=== PATIENT | male | born 1970 | race American Indian/Alaskan Native ===

== ENCOUNTER 2021-10-23 11:02 | Inpatient (IN) | payer SELFPAY ==
--- NOTE | 2021-10-23 14:52 | Event Note ---
ED Screening Note ED Screening Note: Patient reports dizziness, dark rectal blood, and abdominal pain. Heart rate 117 in triage. Labs ordered This initial assessment/diagnostic orders/clinical plan/treatment(s) is/are subject to change based on patients health status, clinical progression and re- assessment by fellow clinical providers in the ED. Further treatment and workup at subsequent clinical providers discretion. Patient/guardian urged not to elope from the ED as their condition may be serious if not clinically assessed and managed. Initial orders include: Sitting and reassessment to, pending a main ER bed for his abdominal work-up
[2021-10-23 16:57] LABS: Basophils % (Auto) 0.6 % (0.0-1.8); Eosinophils % (Auto) 0.3 % (0.0-4.3); INR 0.99 (0.87-1.13); Lymphocytes # (Auto) 3.1 K/mm3 (1.2-5.4); Lymphocytes % (Auto) 44.3 % (13.4-35.0); Mean Corpuscular HGB Conc 33 % (32-34); Mean Corpuscular Volume 80 fl (84-94); Monocytes % (Auto) 14.1 % (0.0-7.3); Red Blood Count 1.96 M/mm3 (3.65-5.03); Red Cell Distribution Width 14.1 % (13.2-15.2)
[2021-10-23 17:00] LABS: Hemoglobin 5.2 gm/dl (11.8-15.2)
[2021-10-23 17:01] LABS: Hematocrit 15.8 % (35.5-45.6); Platelet Count 232 K/mm3 (140-440)
[2021-10-23 17:04] LABS: Alanine Aminotransferase 6 units/L (7-56); Albumin 3.6 g/dL (3.9-5); Blood Urea Nitrogen 17 mg/dL (9-20); Calcium 8.6 mg/dL (8.4-10.2); Hemolysis Index 0
[2021-10-23 17:07] LABS: BUN/Creatinine Ratio 28
[2021-10-23 17:17] LABS: Partial Thromboplastin Time < 20.0 Sec. (24.2-36.6)
[2021-10-23] MEDS ORDERED: SODIUM CHLORIDE 0.9% 500 ML 500 ML IV ONE (17:25)
[2021-10-23] MEDS ORDERED: SODIUM CHLORIDE 0.9% 1000 ML 2,000 ML IV ONE (17:26)
--- NOTE | 2021-10-23 17:29 | Emergency Department Report ---
ED GI Bleed HPI - General Chief complaint: GI Bleed Stated complaint: gi bleed Time Seen by Provider: 10/23/21 17:14 Source: patient, RN notes reviewed Mode of arrival: Ambulatory Limitations: No Limitations - History of Present Illness Initial comments: The patient was evaluated in the emergency department for symptoms described in the history of present illness. He/she was evaluated in the context of the global COVID-19 pandemic, which necessitated consideration that the patient might be at risk for infection with the virus that causes COVID-19. Institutional protocols and algorithms that pertain to the evaluation of patients at risk for COVID-19 are in a state of rapid change based on information released by regulatory bodies including the CDC and federal and state organizations. These policies and algorithms were followed during the pat ient's care in the emergency department. Please note that these policies, procedures and recommendations changed on a rapid basis. This patient is a pleasant and cooperative 51-year-old gentleman, presenting to the ER today with a complaint of painless dark red blood per rectum with bowel movements, for 5 days. The patient denies the use of systemic anticoagulation. The patient has never had endoscopic evaluation previously. Patient reports that he does not identify as a Adventist, and reports no quaker objections to receiving a packed red blood transfusion. -: days(s) Radiation: none Quality: painless Consistency: intermittent Improves with: none Worsens with: other (Defecation) - Related Data Allergies Allergy/AdvReac Type Severity Reaction Status Date / Time No Known Allergies Allergy Verified 10/23/21 12:20 ED Review of Systems ROS: Stated complaint: BLOOD IN URINE Other details as noted in HPI Constitutional: denies: fever, malaise Eyes: denies: eye discharge ENT: denies: congestion Respiratory: denies: cough Cardiovascular: other (Lightheadedness) Gastrointestinal: hematochezia. denies: abdominal pain, hematemesis, melena Musculoskeletal: denies: back pain Neurological: denies: weakness Hematological/Lymphatic: denies: easy bleeding ED Past Medical Hx - Past Medical History Previous Medical History?: No - Surgical History Past Surgical History?: No ED Physical Exam - General Limitations: No Limitations General appearance: alert, in no apparent distress - Head Head exam: Present: atraumatic, normocephalic - Eye Eye exam: Present: normal appearance, EOMI, other (Pale conjunctiva are noted). Absent: nystagmus - ENT ENT exam: Present: normal orophraynx, mucous membranes dry, normal external ear exam, other (Poor dentition) - Neck Neck exam: Present: normal inspection, full ROM. Absent: tenderness, meningismus - Respiratory Respiratory exam: Present: normal lung sounds bilaterally. Absent: respiratory distress, wheezes, rales, rhonchi, stridor, decreased breath sounds - Cardiovascular Cardiovascular Exam: Present: normal rhythm, tachycardia. Absent: bradycardia, irregular rhythm, systolic murmur, diastolic murmur, rubs, gallop - GI/Abdominal GI/Abdominal exam: Present: soft. Absent: distended, tenderness, guarding, rebound, rigid, pulsatile mass - Rectal Rectal exam: Present: normal inspection, normal rectal tone, bloody stool, other (Patient provides consent for digital rectal examination) - Extremities Exam Extremities exam: Present: normal inspection, full ROM, other (2+ pulses noted in the bilateral upper and lower extremities. There is no palpable cord. negative Homans sign. Muscular compartments are soft. The pelvis is stable.). Absent: pedal edema, calf tenderness - Back Exam Back exam: Present: normal inspection. Absent: tenderness, CVA tenderness (R), CVA tenderness (L), paraspinal tenderness, vertebral tenderness - Neurological Exam Neurological exam: Present: alert, oriented X3, normal gait, other (No facial droop. Tongue midline. Extraocular movements intact bilaterally. Facial sensation intact to light touch in V1, V2, V3 distribution bilaterally. 5 and a 5 strength in 4 extremities. Sensation intact to light touch in 4 extremities.). Absent: motor sensory deficit - Psychiatric Psychiatric exam: Present: flat affect - Skin Skin exam: Present: warm, dry, intact, normal color. Absent: rash ED Course Vital Signs 10/23/21 10/23/21 12:20 17:53 Temperature 97.8 F Pulse Rate 117 H Respiratory 16 Rate Blood Pressure 121/68 [Left] O2 Sat by Pulse 100 Oximetry O2 Sat by Pulse 99 Oximetry [ Digit-Finger] - Reevaluation(s) Reevaluation #1: 10/23/21 17:52 Discussed the patient's history, physical, laboratory studies and clinical impression with GI on-call, Dr. Radha Espana He advises that the GI group will follow in consultation, advises that clear liquid diet is acceptable, he is also in agreement with packed red blood cell transfusion, iron studies, and indicates that PPI once or twice daily would be reasonable. The GI group will follow in consultation and see the patient in the morning. Hospital physician, Dr. Feng, to admit patient to the medical service. Hospital physician, Dr. Feng, to admit patient to the medical service Reevaluation #2: 10/23/21 17:53 I will defer to the inpatient team to follow-up on iron studies. Reevaluation #3: 10/23/21 18:21 Tachycardia resolved. Heart rate 90 bpm. - Pulse Oximetry Interpretation Digit-Finger Initial Pulse Oximetry Readin O2 Sat by Pulse Oximetry: 99 Actions Taken: none ED Medical Decision Making - Lab Data Result diagrams: 10/23/21 16:07 10/23/21 16:07 Vital Signs 10/23/21 12:20 Temperature 97.8 F Pulse Rate 117 H Respiratory 16 Rate Blood Pressure 121/68 [Left] O2 Sat by Pulse 100 Oximetry Lab Results 10/23/21 10/23/21 10/23/21 Range/Units 16:07 16:07 16:07 WBC 7.0 (4.5-11.0) K/mm3 RBC 1.96 L (3.65-5.03) M/mm3 Hgb 5.2 L* (11.8-15.2) gm/dl Hct 15.8 L* (35.5-45.6) % MCV 80 L (84-94) fl MCH 26 L (28-32) pg MCHC 33 (32-34) % RDW 14.1 (13.2-15.2) % Plt Count 232 (140-440) K/mm3 Lymph % (Auto) 44.3 H (13.4-35.0) % [place] % (Auto) 14.1 H (0.0-7.3) % Eos % (Auto) 0.3 (0.0-4.3) % Baso % (Auto) 0.6 (0.0-1.8) % Lymph # (Auto) 3.1 (1.2-5.4) K/mm3 [place] # (Auto) 1.0 H (0.0-0.8) K/mm3 Eos # (Auto) 0.0 (0.0-0.4) K/mm3 Baso # (Auto) 0.0 (0.0-0.1) K/mm3 Seg Neutrophils % 40.7 (40.0-70.0) % Seg Neutrophils # 2.8 (1.8-7.7) K/mm3 PT 14.2 (12.2-14.9) Sec. INR 0.99 (0.87-1.13) APTT < 20.0 L (24.2-36.6) Sec. Sodium 142 (137-145) mmol/L Potassium 4.2 (3.6-5.0) mmol/L Chloride 108.5 H (98-107) mmol/L Carbon Dioxide 24 (22-30) mmol/L Anion Gap 14 mmol/L BUN 17 (9-20) mg/dL Creatinine 0.6 L (0.8-1.3) mg/dL Estimated GFR > 60 ml/min BUN/Creatinine Ratio 28 % Glucose 99 (75-100) mg/dL Calcium 8.6 (8.4-10.2) mg/dL Magnesium 2.10 (1.7-2.3) mg/dL Total Bilirubin 0.20 (0.1-1.2) mg/dL AST 16 (5-40) units/L ALT 6 L (7-56) units/L Alkaline Phosphatase 43 (35-129) units/L Total Protein 7.5 (6.3-8.2) g/dL Albumin 3.6 L (3.9-5) g/dL Albumin/Globulin Ratio 0.9 % Lipase 12 L (13-60) units/L - EKG Data -: EKG Interpreted by Fl EKG shows normal: sinus rhythm Rate: normal - EKG Data When compared to previous EKG there are: previous EKG unavailable 10/23/21 18:21 The EKG is interpreted at 18: 2 0 Sinus rhythm, rate 90 bpm. Normal axis, normal P wave axis, left ventricular hypertrophy, QTC 4 4 8 ms, OH interval 1 7 8 ms. This is an abnormal EKG. This is not a STEMI. Low voltage noted in lead I. - Medical Decision Making Differential diagnosis, including but not limited to: Diverticulosis, angiodysplasia, malignancy Assessment and plan: 51-year-old gentleman presenting with painless dark red blood per rectum associated with defecation. Does not take any anticoagulants, and reports no endoscopic evaluation or colonoscopy that he is aware of. He is tachycardic, but not encephalopathic, with a soft benign abdomen, and is found to have dark red blood on rectal examination. He is obviously guaiac positive. He is also found to have a microcytic anemia. He is agreeable to packed red blood cell transfusion, and reports no quaker objections to packed red blood cell transfusion. Have recommended admission to the medical service for supportive care, blood transfusion, urgent GI consultation. I discussed this plan of care with the patient. He is agreeable to the plan of care. Currently awaiting callback from GI. Critical Care Time: Yes Critical care time in (mins) excluding proc time.: 35 Critical care attestation.: If time is entered above; I have spent that time in minutes in the direct care of this critically ill patient, excluding procedure time. ED Disposition Clinical Impression: GI bleed, Microcytic anemia Disposition: ADMITTED INPATIENT Is pt being admited?: Yes Does the pt Need Aspirin: No Condition: Good Forms: Accompanied Note
[2021-10-23] MEDS ORDERED: PANTOPRAZOLE 40 MG INJ IV ONE (17:50)
[2021-10-23] MEDS ORDERED: oxyCODONE /ACETAMINOPHEN 5-325MG TAB PO PRN (17:53)
[2021-10-23] MEDS ORDERED: ALBUTEROL 2.5 MG/3 ML NEBU IH PRN (17:53)
[2021-10-23] MEDS ORDERED: HYDROmorphone 0.5 MG/0.5 ML INJ IV PRN (17:53)
[2021-10-23] MEDS ORDERED: ONDANSETRON 4 MG/2 ML INJ IV PRN (17:53)
--- NOTE | 2021-10-23 17:53 | History and Physical Report ---
History of Present Illness Chief complaint: I see blood when I go to the toilet History of present illness: 51 YO Male with no PMH presents to ED for evaluation. Patient reports "I see blood when I go to the bathroom". Patient states that he has experienced dark red blood per rectum when having bowel movements. Patient states that he has experienced multiple episodes of dark stools over the past 5 days. Patient transported to [facility] via private vehicle for further care and evaluation of the aforementioned symptoms. The patient was seen and evaluated in the emergency department. All lab and imaging studies reviewed. Patient found to be Hemoccult positive with clinical symptoms consistent with GI bleed complicated by blood loss anemia. Patient admitted to medical floor due to increased risk of worsening symptoms. Patient treated with packed red blood cell transfusion, as well as PPI therapy, GI team consulted in ED. Patient pending endoscopic evaluation. Patient denies fever, chills, chest pain, palpitation, productive cough, skin rash, recent contact, or known exposure to COVID-19. No prior adm ission for review. No medication listed at time of admission for reconciliation. Past History Past Medical History: No medical history, other (Reviewed) Past Surgical History: No surgical history, Other (Reviewed) Social history: single. denies: smoking, alcohol abuse, prescription drug abuse Family history: hypertension Medications and Allergies Allergies Allergy/AdvReac Type Severity Reaction Status Date / Time No Known Allergies Allergy Verified 10/23/21 12:20 Review of Systems Constitutional: weakness, no weight gain, no fever, no chills Ears, nose, mouth and throat: no ear pain, no ear discharge, no nose pain, no nasal congestion Respiratory: no cough, no excessive sputum, no hemoptysis Gastrointestinal: BRBPR, no abdominal pain, no diarrhea, no constipation, no hematemesis, no coffee ground emesis Genitourinary Male: no hematuria, no flank pain, no discharge, no urinary nerissa quency, no urinary hesitancy Rectal: no pain Musculoskeletal: no neck stiffness, no neck pain, no shooting arm pain Integumentary: no rash, no pruritis, no redness, no jaundice, no boils Neurological: no transient paralysis, no numbness, no tingling, no seizures, no syncope Psychiatric: no anxiety, no change in sleep habits, no insomnia, no change in appetite, no change in libido, no disorientation Endocrine: no cold intolerance, no polyphagia, no polyuria, no nocturia, no flushing Hematologic/Lymphatic: no easy bruising, no lymphadenopathy Allergic/Immunologic: no allergic rhinitis, no anaphylaxis, no angioedema Exam - Constitutional Vitals: Temp Pulse Resp BP Pulse Ox 97.8 F 117 H 16 121/68 99 10/23/21 12:20 10/23/21 12:20 10/23/21 12:20 10/23/21 12:20 10/23/21 17:42 General appearance: Present: mild distress, cachectic - EENT Eyes: Present: PERRL ENT: hearing intact, clear oral mucosa - Neck Neck: Present: supple, normal ROM - Respiratory Respiratory effort: normal Respiratory: bilateral: CTA - Cardiovascular Heart Sounds: Present: S1 & S2. Absent: rub, click - Extremities Extremities: pulses symmetrical, No edema Peripheral Pulses: within normal limits - Abdominal General gastrointestinal: Present: soft, non-tender, non-distended, normal bowel sounds Male genitourinary: Present: normal - Integumentary Integumentary: Present: clear, warm, dry - Musculoskeletal Musculoskeletal: gait normal, strength equal bilaterally - Psychiatric Psychiatric: appropriate mood/affect, intact judgment & insight - Neurologic Neurologic: CNII-XII intact, moves all extremities Results - Labs CBC & Chem 7: 10/23/21 16:07 10/23/21 16:07 Labs: Abnormal lab results 10/23/21 10/23/21 10/23/21 Range/Units 16:07 16:07 16:07 RBC 1.96 L (3.65-5.03) M/mm3 Hgb 5.2 L* (11.8-15.2) gm/dl Hct 15.8 L* (35.5-45.6) % MCV 80 L (84-94) fl MCH 26 L (28-32) pg Lymph % (Auto) 44.3 H (13.4-35.0) % [place] % (Auto) 14.1 H (0.0-7.3) % [place] # (Auto) 1.0 H (0.0-0.8) K/mm3 APTT < 20.0 L (24.2-36.6) Sec. Chloride 108.5 H (98-107) mmol/L Creatinine 0.6 L (0.8-1.3) mg/dL ALT 6 L (7-56) units/L Albumin 3.6 L (3.9-5) g/dL Lipase 12 L (13-60) units/L Assessment and Plan - Patient Problems (1) GI bleed Current Visit: No Status: Acute Plan to address problem: GI bleed protocol: Hemoccult in ED, Blood cell transfusion, PPI therapy, supportive care, bowel rest, GI team consulted. Patient pending further care and evaluation as per GI team. (2) Anemia Current Visit: Yes Status: Acute Plan to address problem: Blood cell transfusion, supportive care, iron supplementation. (3) Malnutrition Current Visit: Yes Status: Acute Qualifiers: Protein-calorie malnutrition severity: mild Plan to address problem: Increase protein intake, dietary supplementation. (4) DVT prophylaxis Current Visit: Yes Status: Acute Plan to address problem: SCD to bilateral lower extremities while in bed (5) Advance care planning Current Visit: Yes Status: Acute Plan to address problem: Disease education data, care plan discussed, diagnoses discussed, prognosis discussed, patient is full code. Patient acknowledges understanding and agreement with care plan, +30 minutes. (6) Preventative health care Current Visit: Yes Status: Acute Plan to address problem: Patient counseled regarding balanced diet, increase protein intake, outpatient follow-up with primary care physician for all age and risk factor appropriate screening tests. +30 minutes.
[2021-10-23 18:52] LABS: Iron 17 ug/dL (49-181); Total Iron Binding Capacity 283 mcg/dL (250-450)
[2021-10-23] MEDS: PANTOPRAZOLE 40 MG INJ IV SCH (22:10)
[2021-10-24 05:45] LABS: Basophils % (Auto) 0.3 % (0.0-1.8); Eosinophils % (Auto) 0.7 % (0.0-4.3); Hemoglobin 7.2 gm/dl (11.8-15.2); Mean Corpuscular HGB Conc 35 % (32-34); Mean Corpuscular Volume 79 fl (84-94); Monocytes # (Auto) 0.7 K/mm3 (0.0-0.8); Monocytes % (Auto) 11.9 % (0.0-7.3); Platelet Count 211 K/mm3 (140-440); Red Blood Count 2.65 M/mm3 (3.65-5.03); Red Cell Distribution Width 14.3 % (13.2-15.2)
[2021-10-24] MEDS: SODIUM CHLORIDE 0.9% 1000 ML 1,000 ML IV SCH ×2 (08:00→20:43)
--- NOTE | 2021-10-24 09:37 | Progress Note ---
Assessment and Plan Assessment and plan: 51 YO Male with no PMH presents to ED for evaluation of hematochezia. Patient stated that he has experienced dark red blood per rectum when having bowel movements. Patient stated that he has experienced multiple episodes of dark stools over the past 5 days. Patient transported to [facility] via private vehicle for further care and evaluation of the aforementioned symptoms. The patient was seen and evaluated in the emergency department. All lab and imaging studies reviewed. Patient found to be Hemoccult positive with clinical symptoms consistent with GI bleed complicated by blood loss anemia. Patient admitted to medical floor due to increased risk of worsening symptoms. GI bleed Acute blood loss anemia Moderate protein calorie malnutrition 10/24/2021. Patient has received 1 unit of PRBCs. We will continue with PRBCs until hemoglobin has stabilized. Follow-up serial H&H. Patient has had no further bleeding since admission. Await GI consultation. Continue IV Protonix History Interval history: No new issues overnight Hospitalist Physical - Constitutional Vitals: Temp Pulse Resp BP Pulse Ox 97.7 F 89 18 93/59 100 10/23/21 20:38 10/24/21 06:34 10/24/21 06:34 10/24/21 06:31 10/24/21 09:12 General appearance: Present: no acute distress, cachectic - EENT Eyes: Present: PERRL, EOM intact ENT: hearing intact, clear oral mucosa, dentition normal - Neck Neck: Present: supple, normal ROM - Respiratory Respiratory effort: normal Respiratory: bilateral: CTA - Cardiovascular Rhythm: regular Heart Sounds: Present: S1 & S2. Absent: gallop, rub - Extremities Extremities: no ischemia, No edema, Full ROM - Abdominal General gastrointestinal: soft, non-tender, non-distended, normal bowel sounds - Integumentary Integumentary: Present: clear, warm, dry - Neurologic Neurologic: CNII-XII intact, moves all extremities Results - Labs CBC & Chem 7: 10/24/21 04:46 10/23/21 16:07 Labs: Laboratory Last Values WBC 5.9 K/mm3 (4.5-11.0) 10/24/21 04:46 RBC 2.65 M/mm3 (3.65-5.03) L 10/24/21 04:46 Hgb 7.2 gm/dl (11.8-15.2) L 10/24/21 04:46 Hct 21.0 % (35.5-45.6) L 10/24/21 04:46 MCV 79 fl (84-94) L 10/24/21 04:46 MCH 27 pg (28-32) L 10/24/21 04:46 MCHC 35 % (32-34) H 10/24/21 04:46 RDW 14.3 % (13.2-15.2) 10/24/21 04:46 Plt Count 211 K/mm3 (140-440) 10/24/21 04:46 Lymph % (Auto) 33.0 % (13.4-35.0) 10/24/21 04:46 [place] % (Auto) 11.9 % (0.0-7.3) H 10/24/21 04:46 Eos % (Auto) 0.7 % (0.0-4.3) 10/24/21 04:46 Baso % (Auto) 0.3 % (0.0-1.8) 10/24/21 04:46 Lymph # (Auto) 2.0 K/mm3 (1.2-5.4) 10/24/21 04:46 [place] # (Auto) 0.7 K/mm3 (0.0-0.8) 10/24/21 04:46 Eos # (Auto) 0.0 K/mm3 (0.0-0.4) 10/24/21 04:46 Baso # (Auto) 0.0 K/mm3 (0.0-0.1) 10/24/21 04:46 Seg Neutrophils % 54.1 % (40.0-70.0) 10/24/21 04:46 Seg Neutrophils # 3.2 K/mm3 (1.8-7.7) 10/24/21 04:46 PT 14.2 Sec. (12.2-14.9) 10/23/21 16:07 INR 0.99 (0.87-1.13) 10/23/21 16:07 APTT < 20.0 Sec. (24.2-36.6) L 10/23/21 16:07 Sodium 142 mmol/L (137-145) 10/23/21 16:07 Potassium 4.2 mmol/L (3.6-5.0) 10/23/21 16:07 Chloride 108.5 mmol/L (98-107) H 10/23/21 16:07 Carbon Dioxide 24 mmol/L (22-30) 10/23/21 16:07 Anion Gap 14 mmol/L 10/23/21 16:07 BUN 17 mg/dL (9-20) 10/23/21 16:07 Creatinine 0.6 mg/dL (0.8-1.3) L 10/23/21 16:07 Estimated GFR > 60 ml/min 10/23/21 16:07 BUN/Creatinine Ratio 28 % 10/23/21 16:07 Glucose 99 mg/dL (75-100) 10/23/21 16:07 Calcium 8.6 mg/dL (8.4-10.2) 10/23/21 16:07 Magnesium 2.10 mg/dL (1.7-2.3) 10/23/21 16:07 Iron 17 ug/dL (49-181) L 10/23/21 17:55 TIBC 283 mcg/dL (250-450) 10/23/21 17:55 Ferritin 25.0 ng/mL (30.0-300.0) L 10/23/21 17:55 Total Bilirubin 0.20 mg/dL (0.1-1.2) 10/23/21 16:07 AST 16 units/L (5-40) 10/23/21 16:07 ALT 6 units/L (7-56) L 10/23/21 16:07 Alkaline Phosphatase 43 units/L (35-129) 10/23/21 16:07 Total Protein 7.5 g/dL (6.3-8.2) 10/23/21 16:07 Albumin 3.6 g/dL (3.9-5) L 10/23/21 16:07 Albumin/Globulin Ratio 0.9 % 10/23/21 16:07 Lipase 12 units/L (13-60) L 10/23/21 16:07 Blood Type AB POSITIVE 10/23/21 Unknown Antibody Screen Negative 10/23/21 Unknown Crossmatch See Detail 10/23/21 Unknown Microbiology: Microbiology 10/23/21 Unknown Stool - Stool Aspirate Stool Occult Blood (MARY ALICE) - Final Daily/IV: Voiding Method Toilet Active Medications - Current Medications Current Medications: Generic Name Dose Route Start Last Admin Trade Name Freq PRN Reason Stop Dose Admin Acetaminophen 650 mg 10/23/21 17:53 Acetaminophen 325 Mg Tab PO Q4H PRN Pain MILD(1-3)/Fever >100.5/POLLACK Albuterol 2.5 mg 10/23/21 17:53 Albuterol 2.5 Mg/3 Ml Nebu IH Q4HRT PRN Shortness Of Breath Hydromorphone HCl 0.5 mg 10/23/21 17:53 Hydromorphone 0.5 Mg/0.5 Ml Inj IV Q23H PRN Pain , Severe (7-10) Sodium Chloride 1,000 mls @ 75 mls/hr 10/24/21 08:00 10/24/21 08:00 Nacl 0.9% 1000 Ml IV 75 mls/hr DIRECT JENN Administration Ondansetron HCl 4 mg 10/23/21 17:53 Ondansetron 4 Mg/2 Ml Inj IV Q8H PRN Nausea And Vomiting Oxycodone/Acetaminophen 1 tab 10/23/21 17:53 Oxycodone /Acetaminophen 5-325mg Tab PO Q16H PRN Pain, Moderate (4-6) Pantoprazole Sodium 40 mg 10/23/21 22:00 10/23/21 22:10 Pantoprazole 40 Mg Inj IV 40 mg BID JENN Administration Sodium Chloride 10 ml 10/23/21 22:00 10/23/21 22:11 Sodium Chloride 0.9% 10 Ml Flush Syringe IV 10 ml BID JENN Administration Sodium Chloride 10 ml 10/23/21 17:53 Sodium Chloride 0.9% 10 Ml Flush Syringe IV PRN PRN LINE FLUSH
--- NOTE | 2021-10-24 10:13 | Gastroenterology Consultation ---
History of Present Illness - Reason for Consult Consult date: 10/24/21 GI Bleed - History of Present Illness Mr. Dominguez is a 51 y/o M who presented to the ED last p.m. c/o blood in his stool. Pt states that he began noticing bloody stool Thursday afternoon and has persisted since w/ alternating episodes of melena and hematochezia. Pt states that after he has a BM he feels dizzy. Pt states that this has never happened before and he had "normal BMs w/ occasional constipation" up until Thursday. Endorses x1 episode of nonbloody vomit "a few days ago." Denies abdominal pain, previous colon/EGD, or FMHx of CRC/polyps. No know sick contacts or recent travel. In the ED pt H/H was 5.2, 15.8. After transfusion H/H 7.2, 21.0. Pt states that he is feeling well and has not have any episodes of bloody stool since being in the hospital. Past History Past Medical History: No medical history, other (Reviewed) Past Surgical History: No surgical history, Other (Reviewed) Social history: single. denies: smoking, alcohol abuse, prescription drug abuse Family history: hypertension Medications and Allergies Allergies Allergy/AdvReac Type Severity Reaction Status Date / Time No Known Allergies Allergy Verified 10/23/21 12:20 Active Meds: Active Medications Acetaminophen (Acetaminophen 325 Mg Tab) 650 mg PO Q4H PRN PRN Reason: Pain MILD(1-3)/Fever >100.5/POLLACK Albuterol (Albuterol 2.5 Mg/3 Ml Nebu) 2.5 mg IH Q4HRT PRN PRN Reason: Shortness Of Breath Hydromorphone HCl (Hydromorphone 0.5 Mg/0.5 Ml Inj) 0.5 mg IV Q23H PRN PRN Reason: Pain , Severe (7-10) Sodium Chloride (Nacl 0.9% 1000 Ml) 1,000 mls @ 75 mls/hr IV DIRECT JENN Last Admin: 10/24/21 08:00 Dose: 75 mls/hr Ondansetron HCl (Ondansetron 4 Mg/2 Ml Inj) 4 mg IV Q8H PRN PRN Reason: Nausea And Vomiting Oxycodone/Acetaminophen (Oxycodone /Acetaminophen 5-325mg Tab) 1 tab PO Q16H PRN PRN Reason: Pain, Moderate (4-6) Pantoprazole Sodium (Pantoprazole 40 Mg Inj) 40 mg IV BID [facility] Last Admin: 10/23/21 22:10 Dose: 40 mg Sodium Chloride (Sodium Chloride 0.9% 10 Ml Flush Syringe) 10 ml IV BID [facility] Last Admin: 10/23/21 22:11 Dose: 10 ml Sodium Chloride (Sodium Chloride 0.9% 10 Ml Flush Syringe) 10 ml IV PRN PRN PRN Reason: LINE FLUSH Review of Systems - Review of Systems Gastrointestinal: change in bowel habits, melena, hematochezia Exam - Constitutional Vital Signs: Temp Pulse Resp BP Pulse Ox 97.7 F 89 18 93/59 100 10/23/21 20:38 10/24/21 06:34 10/24/21 06:34 10/24/21 06:31 10/24/21 09:12 General appearance: no acute distress - EENT ENT: hearing intact - Neck Neck: supple, normal ROM - Respiratory Respiratory effort: normal - Gastrointestinal General gastrointestinal: Present: soft, non-tender, non-distended - Integumentary Integumentary: Present: clear, warm, dry - Neurologic Neurological: alert and oriented x3 - Labs CBC & Chem 7: 10/24/21 04:46 10/23/21 16:07 Lab Results: Laboratory Results - last 24 hr 10/23/21 10/23/21 10/23/21 16:07 16:07 16:07 WBC 7.0 RBC 1.96 L Hgb 5.2 L* Hct 15.8 L* MCV 80 L MCH 26 L MCHC 33 RDW 14.1 Plt Count 232 Lymph % (Auto) 44.3 H [place] % (Auto) 14.1 H Eos % (Auto) 0.3 Baso % (Auto) 0.6 Lymph # (Auto) 3.1 [place] # (Auto) 1.0 H Eos # (Auto) 0.0 Baso # (Auto) 0.0 Seg Neutrophils % 40.7 Seg Neutrophils # 2.8 PT 14.2 INR 0.99 APTT < 20.0 L Sodium 142 Potassium 4.2 Chloride 108.5 H Carbon Dioxide 24 Anion Gap 14 BUN 17 Creatinine 0.6 L Estimated GFR > 60 BUN/Creatinine Ratio 28 Glucose 99 Calcium 8.6 Magnesium 2.10 Iron TIBC Ferritin Total Bilirubin 0.20 AST 16 ALT 6 L Alkaline Phosphatase 43 Total Protein 7.5 Albumin 3.6 L Albumin/Globulin Ratio 0.9 Lipase 12 L Blood Type Antibody Screen Crossmatch 10/23/21 10/23/21 10/23/21 17:55 17:55 Unknown WBC RBC Hgb Hct MCV MCH MCHC RDW Plt Count Lymph % (Auto) [place] % (Auto) Eos % (Auto) Baso % (Auto) Lymph # (Auto) [place] # (Auto) Eos # (Auto) Baso # (Auto) Seg Neutrophils % Seg Neutrophils # PT INR APTT Sodium Potassium Chloride Carbon Dioxide Anion Gap BUN Creatinine Estimated GFR BUN/Creatinine Ratio Glucose Calcium Magnesium Iron 17 L TIBC 283 Ferritin 25.0 L Total Bilirubin AST ALT Alkaline Phosphatase Total Protein Albumin Albumin/Globulin Ratio Lipase Blood Type AB POSITIVE Antibody Screen Negative Crossmatch See Detail 10/24/21 04:46 WBC 5.9 RBC 2.65 L Hgb 7.2 L Hct 21.0 L MCV 79 L MCH 27 L MCHC 35 H RDW 14.3 Plt Count 211 Lymph % (Auto) 33.0 [place] % (Auto) 11.9 H Eos % (Auto) 0.7 Baso % (Auto) 0.3 Lymph # (Auto) 2.0 [place] # (Auto) 0.7 Eos # (Auto) 0.0 Baso # (Auto) 0.0 Seg Neutrophils % 54.1 Seg Neutrophils # 3.2 PT INR APTT Sodium Potassium Chloride Carbon Dioxide Anion Gap BUN Creatinine Estimated GFR BUN/Creatinine Ratio Glucose Calcium Magnesium Iron TIBC Ferritin Total Bilirubin AST ALT Alkaline Phosphatase Total Protein Albumin Albumin/Globulin Ratio Lipase Blood Type Antibody Screen Crossmatch Assessment and Plan 1. Possible GI Bleed -H/H on admission 5.2, 15.8 after transfusion 7.2, 21.0 -Continue to monitor H/H, transfuse if hemoglobin <7 -Clear liquid diet -NPO at midnight for procedure -plan for EGD/colon tomorrow
[2021-10-24] MEDS: PANTOPRAZOLE 40 MG INJ IV SCH ×2 (11:11→22:38)
[2021-10-24] MEDS ORDERED: POLYETHYLENE GLYCOL/ELECT SOLN 4000 ML PO SCH (17:00)
[2021-10-25 09:22] LABS: Hemoglobin 6.7 gm/dl (11.8-15.2); Mean Corpuscular HGB Conc 34 % (32-34); Mean Corpuscular Volume 81 fl (84-94); Platelet Count 210 K/mm3 (140-440); Red Blood Count 2.45 M/mm3 (3.65-5.03); Red Cell Distribution Width 14.4 % (13.2-15.2)
[2021-10-25 09:35] LABS: Hematocrit 19.8 % (35.5-45.6)
--- NOTE | 2021-10-25 10:18 | Electrocardiograph Report ---
[facility] Test Date: 2021-10-23 Test Time: 18:16:01 Pat Name: RUI URBINA Department: Room: A386 1 Gender: M Saute Chef: 000 : 1970 Requested By: LOGAN VILLATORO Order Number: [id number] Reading MD: Red Mcgraw Measurements Intervals [place] Rate: 90 P: 78 DC: 178 QRS: 85 QRSD: 76 T: 78 QT: 365 QTc: 448 Interpretive Statements Sinus rhythm No previous ECG available for comparison Electronically Signed On 10-25-2021 10:18:06 EDT by Red Mcgraw
[2021-10-25] MEDS: PANTOPRAZOLE 40 MG INJ IV SCH ×2 (10:36→21:29)
[2021-10-25] MEDS ORDERED: EPINEPHrine 1 MG/10 ML SYRINGE ONE (10:49)
--- NOTE | 2021-10-25 11:11 | Progress Note ---
Assessment and Plan Assessment and plan: 51 YO Male with no PMH presents to ED for evaluation of hematochezia. Patient stated that he has experienced dark red blood per rectum when having bowel movements. Patient stated that he has experienced multiple episodes of dark stools over the past 5 days. Patient transported to [facility] via private vehicle for further care and evaluation of the aforementioned symptoms. The patient was seen and evaluated in the emergency department. All lab and imaging studies reviewed. Patient found to be Hemoccult positive with clinical symptoms consistent with GI bleed complicated by blood loss anemia. Patient admitted to medical floor due to increased risk of worsening symptoms. GI bleed Acute blood loss anemia Moderate protein calorie malnutrition 10/24/2021. Patient has received 1 unit of PRBCs. We will continue with PRBCs until hemoglobin has stabilized. Follow-up serial H&H. Patient has had no further bleeding since admission. Await GI consultation. Continue IV Protonix 10/25/2021. GI suspects lower GI bleed source including diverticular bleed, AVMs, malignancy, polyp, but upper source also on ddx given report of black stools. Patient is currently hemodynamically stable. We will transfuse 1 unit PRBCs this morning and plan for EGD/colonoscopy later today. I discussed the case with GI. History Interval history: No new issues overnight Hospitalist Physical - Constitutional Vitals: Temp Pulse Resp BP Pulse Ox 98.5 F 120 H 18 128/74 99 10/25/21 05:54 10/25/21 05:54 10/25/21 09:00 10/25/21 05:54 10/25/21 09:00 General appearance: Present: no acute distress, cachectic - EENT Eyes: Present: PERRL, EOM intact ENT: hearing intact, clear oral mucosa, dentition normal - Neck Neck: Present: supple, normal ROM - Respiratory Respiratory effort: normal Respiratory: bilateral: CTA - Cardiovascular Rhythm: regular Heart Sounds: Present: S1 & S2. Absent: gallop, rub - Extremities Extremities: no ischemia, No edema, Full ROM - Abdominal General gastrointestinal: soft, non-tender, non-distended, normal bowel sounds - Integumentary Integumentary: Present: clear, warm, dry - Neurologic Neurologic: CNII-XII intact, moves all extremities Results - Labs CBC & Chem 7: 10/25/21 08:06 10/23/21 16:07 Labs: Laboratory Last Values WBC 5.0 K/mm3 (4.5-11.0) 10/25/21 08:06 RBC 2.45 M/mm3 (3.65-5.03) L 10/25/21 08:06 Hgb 6.7 gm/dl (11.8-15.2) L 10/25/21 08:06 Hct 19.8 % (35.5-45.6) L* 10/25/21 08:06 MCV 81 fl (84-94) L 10/25/21 08:06 MCH 27 pg (28-32) L 10/25/21 08:06 MCHC 34 % (32-34) 10/25/21 08:06 RDW 14.4 % (13.2-15.2) 10/25/21 08:06 Plt Count 210 K/mm3 (140-440) 10/25/21 08:06 Lymph % (Auto) 33.0 % (13.4-35.0) 10/24/21 04:46 [place] % (Auto) 11.9 % (0.0-7.3) H 10/24/21 04:46 Eos % (Auto) 0.7 % (0.0-4.3) 10/24/21 04:46 Baso % (Auto) 0.3 % (0.0-1.8) 10/24/21 04:46 Lymph # (Auto) 2.0 K/mm3 (1.2-5.4) 10/24/21 04:46 [place] # (Auto) 0.7 K/mm3 (0.0-0.8) 10/24/21 04:46 Eos # (Auto) 0.0 K/mm3 (0.0-0.4) 10/24/21 04:46 Baso # (Auto) 0.0 K/mm3 (0.0-0.1) 10/24/21 04:46 Seg Neutrophils % 54.1 % (40.0-70.0) 10/24/21 04:46 Seg Neutrophils # 3.2 K/mm3 (1.8-7.7) 10/24/21 04:46 PT 14.2 Sec. (12.2-14.9) 10/23/21 16:07 INR 0.99 (0.87-1.13) 10/23/21 16:07 APTT < 20.0 Sec. (24.2-36.6) L 10/23/21 16:07 Sodium 142 mmol/L (137-145) 10/23/21 16:07 Potassium 4.2 mmol/L (3.6-5.0) 10/23/21 16:07 Chloride 108.5 mmol/L (98-107) H 10/23/21 16:07 Carbon Dioxide 24 mmol/L (22-30) 10/23/21 16:07 Anion Gap 14 mmol/L 10/23/21 16:07 BUN 17 mg/dL (9-20) 10/23/21 16:07 Creatinine 0.6 mg/dL (0.8-1.3) L 10/23/21 16:07 Estimated GFR > 60 ml/min 10/23/21 16:07 BUN/Creatinine Ratio 28 % 10/23/21 16:07 Glucose 99 mg/dL (75-100) 10/23/21 16:07 Calcium 8.6 mg/dL (8.4-10.2) 10/23/21 16:07 Magnesium 2.10 mg/dL (1.7-2.3) 10/23/21 16:07 Iron 17 ug/dL (49-181) L 10/23/21 17:55 TIBC 283 mcg/dL (250-450) 10/23/21 17:55 Ferritin 25.0 ng/mL (30.0-300.0) L 10/23/21 17:55 Total Bilirubin 0.20 mg/dL (0.1-1.2) 10/23/21 16:07 AST 16 units/L (5-40) 10/23/21 16:07 ALT 6 units/L (7-56) L 10/23/21 16:07 Alkaline Phosphatase 43 units/L (35-129) 10/23/21 16:07 Total Protein 7.5 g/dL (6.3-8.2) 10/23/21 16:07 Albumin 3.6 g/dL (3.9-5) L 10/23/21 16:07 Albumin/Globulin Ratio 0.9 % 10/23/21 16:07 Lipase 12 units/L (13-60) L 10/23/21 16:07 Blood Type AB POSITIVE 10/23/21 Unknown Antibody Screen Negative 10/23/21 Unknown Crossmatch See Detail 10/23/21 Unknown Daily/IV: Voiding Method Toilet Active Medications - Current Medications Current Medications: Generic Name Dose Route Start Last Admin Trade Name Freq PRN Reason Stop Dose Admin Acetaminophen 650 mg 10/23/21 17:53 Acetaminophen 325 Mg Tab PO Q4H PRN Pain MILD(1-3)/Fever >100.5/POLLACK Albuterol 2.5 mg 10/23/21 17:53 Albuterol 2.5 Mg/3 Ml Nebu IH Q4HRT PRN Shortness Of Breath Hydromorphone HCl 0.5 mg 10/23/21 17:53 Hydromorphone 0.5 Mg/0.5 Ml Inj IV Q23H PRN Pain , Severe (7-10) Sodium Chloride 1,000 mls @ 75 mls/hr 10/24/21 08:00 10/24/21 20:43 Nacl 0.9% 1000 Ml IV 75 mls/hr DIRECT JENN Administration Ondansetron HCl 4 mg 10/23/21 17:53 Ondansetron 4 Mg/2 Ml Inj IV Q8H PRN Nausea And Vomiting Oxycodone/Acetaminophen 1 tab 10/23/21 17:53 Oxycodone /Acetaminophen 5-325mg Tab PO Q16H PRN Pain, Moderate (4-6) Pantoprazole Sodium 40 mg 10/23/21 22:00 10/25/21 10:36 Pantoprazole 40 Mg Inj IV 40 mg BID JENN Administration Polyethylene Glycol/Electrolytes 4,000 ml 10/24/21 17:00 10/24/21 16:41 Polyethylene Glycol/Elect Soln 4000 Ml PO 10/25/21 16:59 4,000 ml ONCE JENN Administration Sodium Chloride 10 ml 10/23/21 22:00 10/25/21 10:36 Sodium Chloride 0.9% 10 Ml Flush Syringe IV 10 ml BID JENN Administration Sodium Chloride 10 ml 10/23/21 17:53 Sodium Chloride 0.9% 10 Ml Flush Syringe IV PRN PRN LINE FLUSH
[2021-10-25] MEDS ORDERED: propofoL 200 MG/20 ML VIAL IV ONE ×2 (13:52)
[2021-10-25] MEDS ORDERED: LIDOCAINE MPF (2%) 20 MG/1 ML VIAL 5 ML ONE (13:59)
--- NOTE | 2021-10-25 14:09 | Anesthesia Consultation ---
Anesthesia Consult and Med Hx Date of service: 10/25/21 - Airway Anesthetic Teeth Evaluation: Poor (multiple missing and loose teeth), Dentures (upper) ROM Head & Neck: Adequate Mental/Hyoid Distance: Adequate Mallampati Class: Class II Intubation Access Assessment: Probably Good - Pre-Operative Health Status ASA Pre-Surgery Classification: ASA3 Proposed Anesthetic Plan: MAC - Pulmonary Hx Smoking: Yes (former smoker quit 2yrs ago) Hx Respiratory Symptoms: No - Cardiovascular System Hx Hypertension: No Hx Heart Attack/AMI: No - Central Nervous System CVA: No - Endocrine Hx Renal Disease: No Hx Liver Disease: No Hx Insulin Dependent Diabetes: No Hx Non-Insulin Dependent Diabetes: No Hx Thyroid Disease: No - Hematic Hx Anemia: Yes (2/2 GI bleed; pRBCs transfusing) - Additional Comments Anesthesia Medical History Comments: No prior GA.
--- NOTE | 2021-10-25 14:11 | Anesthesia Day of Surgery ---
Anesthesia Day of Surgery - Day of Surgery Patient Examined: Yes Patient H&P Reviewed: Yes Patient is NPO: Yes
--- NOTE | 2021-10-25 14:24 | Operative Report ---
Operative Report Operative Report: Date: 10/25/21 Endoscopist: Zaid Wilson MD (Jenny) EGD REPORT PREOPERATIVE DIAGNOSIS: anemia, GI bleed POSTOPERATIVE DIAGNOSIS: upper esophageal stricture ESTIMATED BLOOD LOSS: minimal DESCRIPTION OF PROCEDURE: A high-resolution EGD scope was passed through the oropharynx, esophagus. At the end of the procedure, the scope was cleaned using normal technique. Vital signs monitored continuously throughout. SEDATION: Provided by Anesthesiology Services. COMPLICATIONS: None. FINDINGS: 1. An upper esophageal stricture noted with obstruction. Unable to advance beyond the stricture. Mild tear noted with the attempt for passage with the scope. Given that the history was more concerning for lower GI bleed and low blood count, decided against further dilation of the upper esophageal stricture and aborted the procedure. RECOMMENDATIONS: 1. Proceed with colonoscopy.
--- NOTE | 2021-10-25 14:25 | Operative Report ---
Operative Report Operative Report: Procedure: Colonoscopy Endoscopist: Zaid Wilson MD Pre-operative Diagnosis/Indications: GI bleed, hematochezia, anemia Post-operative Diagnosis: mild colonic erythema History: See consult note Sedation: MAC Procedure Details: Indications, risks, and benefits were explained and consent was obtained. Pt was placed in the left lateral decubitus position and sedated. Video colonoscope was inserted thru the anus after digital exam, and advanced to the cecum without difficulty. Scope was then gradually withdrawn with close inspection of the mucosa. Prep was fair. Findings: 1. Brown liquid stools throughout the colon. 2. Normal appearing terminal ileum without any blood. 3. Mild erythematous mucosa in the distal sigmoid and rectum. Biopsies obtained. Specimens: colon bx Complications: None; patient tolerated the procedure well. Disposition: Recover in the GI lab and transfer to the floor. Impression: 1. A complete colonoscopy 2. Mild erythema in the distal sigmoid and rectum, concerning for colitis. Biopsies obtained. 3. No clear source of bleeding to account for anemia. Recommendations: 1. Resume clear liquids. 2. Monitor H/H and transfuse as needed. 3. Continue with PPI IV. 4. In case of recurrent bleeding or drop in H/H, will need repeat attempt for EGD with esophageal dilation. 5. Dr. Thomas will be rounding tomorrow. Zaid Antunez (Tomasa Wilson MD [facility]
[2021-10-25] MEDS ORDERED: PHENYLEPHRINE/NS 1,000 MCG/10 ML SYRINGE (OR USE) IV ONE (14:27)
--- NOTE | 2021-10-25 15:44 | Post Anesthesia Evaluation ---
- Post Anesthesia Evaluation Patient Participated: Yes Airway Patent: Yes Stable Respiratory Function: Yes Nausea/Vomiting: No Temp > 96.8F: Yes Pain Manageable: Yes Adequeate Hydration: Yes Anesthesia Complications: No
[2021-10-25] MEDS: SODIUM CHLORIDE 0.9% 1000 ML 1,000 ML IV SCH (21:28)
[2021-10-25 23:17] LABS: Hemoglobin 6.8 gm/dl (11.8-15.2)
[2021-10-26] MEDS: PANTOPRAZOLE 40 MG INJ IV SCH ×2 (09:33→21:51)
--- NOTE | 2021-10-26 11:06 | Progress Note ---
Assessment and Plan Assessment and plan: 51 YO Male with no PMH presents to ED for evaluation of hematochezia. Patient stated that he has experienced dark red blood per rectum when having bowel movements. Patient stated that he has experienced multiple episodes of dark stools over the past 5 days. Patient transported to [facility] via private vehicle for further care and evaluation of the aforementioned symptoms. The patient was seen and evaluated in the emergency department. All lab and imaging studies reviewed. Patient found to be Hemoccult positive with clinical symptoms consistent with GI bleed complicated by blood loss anemia. Patient admitted to medical floor due to increased risk of worsening symptoms. GI bleed Acute blood loss anemia Esophageal stricture Moderate protein calorie malnutrition 10/24/2021. Patient has received 1 unit of PRBCs. We will continue with PRBCs until hemoglobin has stabilized. Follow-up serial H&H. Patient has had no further bleeding since admission. Await GI consultation. Continue IV Protonix 10/25/2021. GI suspects lower GI bleed source including diverticular bleed, AVMs, malignancy, polyp, but upper source also on ddx given report of black stools. Patient is currently hemodynamically stable. We will transfuse 1 unit PRBCs this morning and plan for EGD/colonoscopy later today. I discussed the case with GI. 10/26/2021. Upper endoscopy revealed an upper esophageal stricture with obstruction. GI reports given that the history was more concerning for lower GI bleed and low blood count, decided against further dilation of the upper esophageal stricture and aborted the procedure. Also, GI reported mild erythema in the distal sigmoid and rectum concerning for colitis from the colonoscopy. However no clear source of bleeding to account for anemia. Patient restarted on clear liquid diet and we we will monitor H&H and transfuse as needed. Continue PPI IV. History Interval history: No new issues overnight Hospitalist Physical - Constitutional Vitals: Temp Pulse Resp BP Pulse Ox 98.1 F 91 H 16 97/61 98 10/25/21 21:03 10/25/21 21:03 10/25/21 21:03 10/25/21 21:03 10/26/21 09:19 General appearance: Present: no acute distress, cachectic - EENT Eyes: Present: PERRL, EOM intact ENT: hearing intact, clear oral mucosa, dentition normal - Neck Neck: Present: supple, normal ROM - Respiratory Respiratory effort: normal Respiratory: bilateral: CTA - Cardiovascular Rhythm: regular Heart Sounds: Present: S1 & S2. Absent: gallop, rub - Extremities Extremities: no ischemia, No edema, Full ROM - Abdominal General gastrointestinal: soft, non-tender, non-distended, normal bowel sounds - Integumentary Integumentary: Present: clear, warm, dry - Neurologic Neurologic: CNII-XII intact, moves all extremities Results - Labs CBC & Chem 7: 10/25/21 22:56 10/23/21 16:07 Labs: Laboratory Last Values WBC 5.0 K/mm3 (4.5-11.0) 10/25/21 08:06 RBC 2.45 M/mm3 (3.65-5.03) L 10/25/21 08:06 Hgb 6.8 gm/dl (11.8-15.2) L 10/25/21 22:56 Hct 20.0 % (35.5-45.6) L 10/25/21 22:56 MCV 81 fl (84-94) L 10/25/21 08:06 MCH 27 pg (28-32) L 10/25/21 08:06 MCHC 34 % (32-34) 10/25/21 08:06 RDW 14.4 % (13.2-15.2) 10/25/21 08:06 Plt Count 210 K/mm3 (140-440) 10/25/21 08:06 Lymph % (Auto) 33.0 % (13.4-35.0) 10/24/21 04:46 [place] % (Auto) 11.9 % (0.0-7.3) H 10/24/21 04:46 Eos % (Auto) 0.7 % (0.0-4.3) 10/24/21 04:46 Baso % (Auto) 0.3 % (0.0-1.8) 10/24/21 04:46 Lymph # (Auto) 2.0 K/mm3 (1.2-5.4) 10/24/21 04:46 [place] # (Auto) 0.7 K/mm3 (0.0-0.8) 10/24/21 04:46 Eos # (Auto) 0.0 K/mm3 (0.0-0.4) 10/24/21 04:46 Baso # (Auto) 0.0 K/mm3 (0.0-0.1) 10/24/21 04:46 Seg Neutrophils % 54.1 % (40.0-70.0) 10/24/21 04:46 Seg Neutrophils # 3.2 K/mm3 (1.8-7.7) 10/24/21 04:46 PT 14.2 Sec. (12.2-14.9) 10/23/21 16:07 INR 0.99 (0.87-1.13) 10/23/21 16:07 APTT < 20.0 Sec. (24.2-36.6) L 10/23/21 16:07 Sodium 142 mmol/L (137-145) 10/23/21 16:07 Potassium 4.2 mmol/L (3.6-5.0) 10/23/21 16:07 Chloride 108.5 mmol/L (98-107) H 10/23/21 16:07 Carbon Dioxide 24 mmol/L (22-30) 10/23/21 16:07 Anion Gap 14 mmol/L 10/23/21 16:07 BUN 17 mg/dL (9-20) 10/23/21 16:07 Creatinine 0.6 mg/dL (0.8-1.3) L 10/23/21 16:07 Estimated GFR > 60 ml/min 10/23/21 16:07 BUN/Creatinine Ratio 28 % 10/23/21 16:07 Glucose 99 mg/dL (75-100) 10/23/21 16:07 Calcium 8.6 mg/dL (8.4-10.2) 10/23/21 16:07 Magnesium 2.10 mg/dL (1.7-2.3) 10/23/21 16:07 Iron 17 ug/dL (49-181) L 10/23/21 17:55 TIBC 283 mcg/dL (250-450) 10/23/21 17:55 Ferritin 25.0 ng/mL (30.0-300.0) L 10/23/21 17:55 Total Bilirubin 0.20 mg/dL (0.1-1.2) 10/23/21 16:07 AST 16 units/L (5-40) 10/23/21 16:07 ALT 6 units/L (7-56) L 10/23/21 16:07 Alkaline Phosphatase 43 units/L (35-129) 10/23/21 16:07 Total Protein 7.5 g/dL (6.3-8.2) 10/23/21 16:07 Albumin 3.6 g/dL (3.9-5) L 10/23/21 16:07 Albumin/Globulin Ratio 0.9 % 10/23/21 16:07 Lipase 12 units/L (13-60) L 10/23/21 16:07 Blood Type AB POSITIVE 10/23/21 Unknown Antibody Screen Negative 10/23/21 Unknown Crossmatch See Detail 10/23/21 Unknown Daily/IV: Voiding Method Toilet Active Medications - Current Medications Current Medications: Generic Name Dose Route Start Last Admin Trade Name Freq PRN Reason Stop Dose Admin Acetaminophen 650 mg 10/23/21 17:53 Acetaminophen 325 Mg Tab PO Q4H PRN Pain MILD(1-3)/Fever >100.5/POLLACK Albuterol 2.5 mg 10/23/21 17:53 Albuterol 2.5 Mg/3 Ml Nebu IH Q4HRT PRN Shortness Of Breath Hydromorphone HCl 0.5 mg 10/23/21 17:53 Hydromorphone 0.5 Mg/0.5 Ml Inj IV Q23H PRN Pain , Severe (7-10) Sodium Chloride 1,000 mls @ 75 mls/hr 10/24/21 08:00 10/25/21 21:28 Nacl 0.9% 1000 Ml IV 75 mls/hr DIRECT JENN Administration Ondansetron HCl 4 mg 10/23/21 17:53 Ondansetron 4 Mg/2 Ml Inj IV Q8H PRN Nausea And Vomiting Oxycodone/Acetaminophen 1 tab 10/23/21 17:53 Oxycodone /Acetaminophen 5-325mg Tab PO Q16H PRN Pain, Moderate (4-6) Pantoprazole Sodium 40 mg 10/23/21 22:00 10/26/21 09:33 Pantoprazole 40 Mg Inj IV 10/26/21 23:59 40 mg BID JENN Administration Pantoprazole Sodium 40 mg 10/27/21 07:30 Pantoprazole 40 Mg Tab PO BIDAC JENN Sodium Chloride 10 ml 10/23/21 22:00 10/26/21 09:33 Sodium Chloride 0.9% 10 Ml Flush Syringe IV 10 ml BID JENN Administration Sodium Chloride 10 ml 10/23/21 17:53 Sodium Chloride 0.9% 10 Ml Flush Syringe IV PRN PRN LINE FLUSH
--- NOTE | 2021-10-26 11:06 | Gastroenterology Progress Note ---
Assessment and Plan GI: pt presented w/ signs bleeding, egd incomplete with esophageal stricture, colon benign - pt without signs bleeding overnight - h/h stable overnight - advance diet - follow h/h, transfuse as needed - if signs bleeding will repeat egd - ok to dc later today or in am if h/h stable - will follow Subjective Date of service: 10/26/21 Interval history: - no GI issues overnight, denies signs bleeding Objective - Constitutional Vitals: Temp Pulse Resp BP Pulse Ox 98.1 F 91 H 16 97/61 98 10/25/21 21:03 10/25/21 21:03 10/25/21 21:03 10/25/21 21:03 10/26/21 09:19 General appearance: no acute distress - EENT Eyes: PERRL - Respiratory Respiratory: bilateral: CTA - Cardiovascular Rhythm: regular Heart Sounds: Present: S1 & S2 - Gastrointestinal General gastrointestinal: Present: soft, non-tender, non-distended - Labs CBC & Chem 7: 10/25/21 22:56 10/23/21 16:07 Labs: Laboratory Results - last 24 hr 10/23/21 10/25/21 Unknown 22:56 Hgb 6.8 L Hct 20.0 L Blood Type AB POSITIVE Antibody Screen Negative Crossmatch See Detail
[2021-10-26 12:49] LABS: Basophils % (Auto) 0.4 % (0.0-1.8); Eosinophils # (Auto) 0.2 K/mm3 (0.0-0.4); Eosinophils % (Auto) 3.8 % (0.0-4.3); Hemoglobin 7.2 gm/dl (11.8-15.2); Lymphocytes # (Auto) 2.1 K/mm3 (1.2-5.4); Lymphocytes % (Auto) 38.9 % (13.4-35.0); Mean Corpuscular HGB Conc 34 % (32-34); Mean Corpuscular Volume 81 fl (84-94); Monocytes # (Auto) 0.8 K/mm3 (0.0-0.8); Monocytes % (Auto) 14.1 % (0.0-7.3); Platelet Count 211 K/mm3 (140-440); Red Blood Count 2.58 M/mm3 (3.65-5.03)
[2021-10-26] MEDS: ACETAMINOPHEN 325 MG TAB PO PRN ×2 (14:34→21:51)
[2021-10-26] MEDS: SODIUM CHLORIDE 0.9% 1000 ML 1,000 ML IV SCH (18:01)
[2021-10-27] MEDS: SODIUM CHLORIDE 0.9% 1000 ML 1,000 ML IV SCH (03:52)
[2021-10-27 05:31] LABS: Basophils % (Auto) 0.5 % (0.0-1.8); Eosinophils # (Auto) 0.2 K/mm3 (0.0-0.4); Eosinophils % (Auto) 4.8 % (0.0-4.3); Hematocrit 20.5 % (35.5-45.6); Hemoglobin 6.9 gm/dl (11.8-15.2); Lymphocytes # (Auto) 1.5 K/mm3 (1.2-5.4); Lymphocytes % (Auto) 34.8 % (13.4-35.0); Mean Corpuscular HGB Conc 34 % (32-34); Mean Corpuscular Volume 81 fl (84-94); Monocytes # (Auto) 0.6 K/mm3 (0.0-0.8); Monocytes % (Auto) 14.6 % (0.0-7.3); Platelet Count 184 K/mm3 (140-440); Red Blood Count 2.53 M/mm3 (3.65-5.03); Red Cell Distribution Width 14.9 % (13.2-15.2)
[2021-10-27 05:37] LABS: Blood Urea Nitrogen 4 mg/dL (9-20); Calcium 7.8 mg/dL (8.4-10.2); Hemolysis Index 2
[2021-10-27 05:38] LABS: BUN/Creatinine Ratio 7
[2021-10-27] MEDS: PANTOPRAZOLE 40 MG TAB PO SCH ×2 (08:11→16:00)
[2021-10-27] MEDS ORDERED: SODIUM CHLORIDE 0.9% 500 ML 500 ML IV NR (09:36)
[2021-10-27] MEDS: ACETAMINOPHEN 325 MG TAB PO PRN (11:11)
--- NOTE | 2021-10-27 11:34 | Discharge Summary ---
Providers - Providers Date of Admission: 10/23/21 17:53 Date of discharge: 10/27/21 Attending physician: VISHAL VELEZ 10/23/21 17:25 Consult to Physician [CONS] Urgent Comment: Consulting Provider: SUPRIYA MARI Physician Instructions: Reason For Exam: gi bleed Primary care physician: CARDIAC/VASCULAR SONOGRAPHER Hospitalization Reason for admission: GI bleed Condition: Good Hospital course: 51 YO Male with no PMH presents to ED for evaluation of hematochezia. Patient stated that he has experienced dark red blood per rectum when having bowel movements. Patient stated that he has experienced multiple episodes of dark stools over the past 5 days. Patient transported to [facility] via private vehicle for further care and evaluation of the aforementioned symptoms. The patient was seen and evaluated in the emergency department. All lab and imaging studies reviewed. Patient found to be Hemoccult positive with clinical symptoms consistent with GI bleed complicated by blood loss anemia. Patient admitted to medical floor due to increased risk of worsening symptoms. The patient admitted with diagnosis below GI bleed Acute blood loss anemia Esophageal stricture Moderate protein calorie malnutrition 10/24/2021. Patient has received 1 unit of PRBCs. We will continue with PRBCs until hemoglobin has stabilized. Follow-up serial H&H. Patient has had no further bleeding since admission. Await GI consultation. Continue IV Protonix 10/25/2021. GI suspects lower GI bleed source including diverticular bleed, AVMs, malignancy, polyp, but upper source also on ddx given report of black stools. Patient is currently hemodynamically stable. We will transfuse 1 unit PRBCs this morning and plan for EGD/colonoscopy later today. I discussed the case with GI. 10/26/2021. Upper endoscopy revealed an upper esophageal stricture with obstruction. GI reports given that the history was more concerning for lower GI bleed and low blood count, decided against further dilation of the upper esophageal stricture and aborted the procedure. Also, GI reported mild erythema in the distal sigmoid and rectum concerning for colitis from the colonoscopy. However no clear source of bleeding to account for anemia. Patient restarted on clear liquid diet and we we will monitor H&H and transfuse as needed. Continue PPI IV. 10/27/2021. H&H has remained essentially stable but hemoglobin is less than 7.0 only slightly at 6.9. Patient has had no signs of active bleeding. We will transfuse 1 unit PRBCs and discharged home after transfusion. Patient tolerating diet well with no issues. Patient is to follow-up with GI as an outpatient for both the GI bleed and esophageal stricture. Dedicated discharge time 35 minutes Disposition: 01 HOME / SELF CARE / HOMELESS Final Discharge Diagnosis (Prints w/discharge instructions): GI bleed. Acute blood loss anemia. Esophageal stricture. Moderate protein calorie malnutrition Core Measure Documentation - Palliative Care Palliative Care/ Comfort Measures: Not Applicable - Core Measures Any of the following diagnoses?: none Exam - Constitutional Vitals: Temp Pulse Resp BP Pulse Ox 99.1 F 85 18 90/56 95 10/27/21 04:25 10/27/21 04:25 10/27/21 04:25 10/27/21 04:10/27/21 08:13 General appearance: Present: no acute distress, well-nourished - EENT Eyes: Present: PERRL ENT: hearing intact, clear oral mucosa - Neck Neck: Present: supple, normal ROM - Respiratory Respiratory effort: normal Respiratory: bilateral: CTA - Cardiovascular Heart Sounds: Present: S1 & S2. Absent: rub, click - Extremities Extremities: pulses symmetrical, No edema Peripheral Pulses: within normal limits - Abdominal General gastrointestinal: Present: soft, non-tender, non-distended, normal bowel sounds Male genitourinary: Present: normal - Integumentary Integumentary: Present: clear, warm, dry - Musculoskeletal Musculoskeletal: gait normal, strength equal bilaterally - Psychiatric Psychiatric: appropriate mood/affect, intact judgment & insight - Neurologic Neurologic: CNII-XII intact, moves all extremities Plan Activity: advance as tolerated Weight Bearing Status: Weight Bear as Tolerated Diet: regular Follow up with: ALEXANDRA CHEN MD [Primary Care Provider] - 7 Days MINSHANE MD [Staff Physician] - 7 Days Forms: Accompanied Note Prescriptions: Pantoprazole [Protonix TAB] 40 mg PO BIDAC #60 tablet
[2021-10-27 15:50] VITALS: BP 110/69
--- NOTE | 2021-10-27 19:05 | Gastroenterology Progress Note ---
Assessment and Plan 1. GI: no GI issues overnight - h/h stable -diet as tolerated - ok to dc from GI standpoint - will signs off,call if needed Subjective Date of service: 10/27/21 Interval history: - no GI complaints overnight, No signs bleeding Objective - Constitutional Vitals: Temp Pulse Resp BP Pulse Ox 99 F 91 H 20 110/69 100 10/27/21 14:50 10/27/21 14:50 10/27/21 14:50 10/27/21 14:50 10/27/21 14:50 General appearance: no acute distress - EENT Eyes: PERRL - Respiratory Respiratory: bilateral: CTA - Cardiovascular Rhythm: regular Heart Sounds: Present: S1 & S2 - Gastrointestinal General gastrointestinal: Present: soft, non-tender, non-distended - Labs CBC & Chem 7: 10/27/21 04:39 10/27/21 04:39 Labs: Laboratory Results - last 24 hr 10/23/21 10/27/21 10/27/21 Unknown 04:39 04:39 WBC 4.3 L RBC 2.53 L Hgb 6.9 L Hct 20.5 L MCV 81 L MCH 27 L MCHC 34 RDW 14.9 Plt Count 184 Lymph % (Auto) 34.8 [place] % (Auto) 14.6 H Eos % (Auto) 4.8 H Baso % (Auto) 0.5 Lymph # (Auto) 1.5 [place] # (Auto) 0.6 Eos # (Auto) 0.2 Baso # (Auto) 0.0 Seg Neutrophils % 45.3 Seg Neutrophils # 2.0 Sodium 141 Potassium 3.3 L D Chloride 108.9 H Carbon Dioxide 24 Anion Gap 11 BUN 4 L Creatinine 0.6 L Estimated GFR > 60 BUN/Creatinine Ratio 7 Glucose 103 H Calcium 7.8 L Blood Type Antibody Screen Crossmatch See Detail 10/27/21 09:44 WBC RBC Hgb Hct MCV MCH MCHC RDW Plt Count Lymph % (Auto) [place] % (Auto) Eos % (Auto) Baso % (Auto) Lymph # (Auto) [place] # (Auto) Eos # (Auto) Baso # (Auto) Seg Neutrophils % Seg Neutrophils # Sodium Potassium Chloride Carbon Dioxide Anion Gap BUN Creatinine Estimated GFR BUN/Creatinine Ratio Glucose Calcium Blood Type AB POSITIVE Antibody Screen Negative Crossmatch See Detail
== END 2021-10-27 17:10 | disposition home or self-care (01) | DRG 378 ==
LOC: ED 11:02 → 3A 17:53
PROVIDERS: ADMIT Internal Medicine; ATTEND Hospitalist
PROC: 0DJ08ZZ Inspection of Upper Intestinal Tract, Via Natural or Artificial Opening Endoscopic (ICD-10-PCS; principal; 2021-10-25)
PROC: 0DBP8ZX Excision of Rectum, Via Natural or Artificial Opening Endoscopic, Diagnostic (ICD-10-PCS; 2021-10-25)
PROC: 0DBN8ZX Excision of Sigmoid Colon, Via Natural or Artificial Opening Endoscopic, Diagnostic (ICD-10-PCS; 2021-10-25)
DX: K57.31 Diverticulosis of large intestine without perforation or abscess with bleeding (principal); R64 Cachexia; D62 Acute posthemorrhagic anemia; E44.0 Moderate protein-calorie malnutrition; K22.2 Esophageal obstruction; Z68.23 Body mass index [BMI] 23.0-23.9, adult; Z82.49 Family history of ischemic heart disease and other diseases of the circulatory system; Z79.899 Other long term (current) drug therapy; Z87.891 Personal history of nicotine dependence
CPT/HCPCS: 36415; 80048; 80053; 82270; 82728; 83550; 83690; 83735; 85014; 85018; 85025; 85027; 85610; 85730; 86850; 86900; 86901; 86920; 88305; 93005; 94760; G0378; C9113; J0171; J2370; J2704; J7030; J7040; P9016